=== PATIENT | male | born 1955 | race Caucasian/White ===

== ENCOUNTER → 2021-01-25 | Outpatient (CLI) | payer MEDICARE, BC ==
[~2021-01-25] MED LIST: ASPIRIN E.C. 8181 MG PO; CRESTOR40 MG PO; DUO-KAPS1 CAP PO; ELIQUIS 5MG PO; IMDUR 60MG60 MG/TAB PO; MULTIPLE VITAMI1 CAP PO; PLAVIX 75MG TAB75 MG PO; PRAVACHOL 40MG40 MG PO; PREVACID 30MG30 M1 PO; PRILOSEC 20MG20 MG PO; RANEXA 500MG T500 MG PO; THE MEDICINE S200 M2 PO; TOPROL XL 25MG25 MG PO; TRENTAL 400MG400 MG PO; TRICOR 48MG48 MG PO; VITAMIN E 400 U4001 PO; ZESTRIL2.5 MG PO; ZETIA 10MG TAB10 MG PO
== END ==
LOC: COL.RAD
DX: R63.4 Abnormal weight loss (principal)
CPT/HCPCS: Q9967

== ENCOUNTER 2021-10-04 14:14 | Day surgery (SDC) | payer MEDICARE, BC ==
[~2021-10-04] VITALS: Ht 180.3 cm; Wt 100.2 kg
[2021-10-04] VITALS (7 sets, daily range): BP systolic 91–132; BP diastolic 59–84; PULSE 52–80; TEMP 98.3
[~2021-10-04 14:14] MED LIST changes: -ELIQUIS 5MG PO; -PRAVACHOL 40MG40 MG PO; -PREVACID 30MG30 M1 PO; -THE MEDICINE S200 M2 PO; -TRENTAL 400MG400 MG PO; -VITAMIN E 400 U4001 PO
[2021-10-04] MEDS ORDERED: PREVACID 30MG30 M1 PO (15:25)
[2021-10-04] MEDS ORDERED: PRAVACHOL 40MG40 MG PO (15:25)
[2021-10-04] MEDS ORDERED: RANEXA 500MG T500 MG PO (15:26)
[2021-10-04] MEDS ORDERED: DUO-KAPS1 CAP PO (15:27)
[2021-10-04] MEDS ORDERED: ASPIRIN E.C. 8181 MG PO (15:27)
[2021-10-04] MEDS ORDERED: VITAMIN E 400 U4001 PO (15:28)
[2021-10-04] MEDS ORDERED: TRENTAL 400MG400 MG PO (15:29)
[2021-10-04] MEDS ORDERED: THE MEDICINE S200 M2 PO (15:31)
[2021-10-04] MEDS ORDERED: ELIQUIS 5MG PO (15:31)
[2021-10-04 16:00] LABS: BASO % 0.4 % (0.0-2.0); EOS # 0.2 K/mm3 (0.0-0.7); EOS % 2.7 % (0-4.0); GRAN % 53.7 % (42.2-75.2); HEMOGLOBIN 14.6 g/dl (13.5-18.0); LYMPH # 2.2 K/mm3 (1.2-3.4); MEAN CELL VOLUME 94 fl (80.0-100.0); MEAN CORPUSCULAR HEMOGLOBIN 32 pg (27.0-31.0); MEAN CORPUSCULAR HGB CONC 34 g/dl (33.0-37.0); MEAN PLATELET VOLUME 10.4 fl (7.4-10.4); MONO # 1.1 K/mm3 (0.1-0.6); MONO % 14.1 % (1.7-9.3); PLATELET COUNT 220 K/mm3 (130-400); RED BLOOD COUNT 4.57 M/mm3 (4.20-5.60); REDCELL DISTRIBUTION WIDTH-CV 12.6 % (11.5-14.5)
[2021-10-04 16:08] LABS: INR 1.3 (0.8-3.0); PROTHROMBIN TIME 14.8 SECONDS (9.7-12.8)
[2021-10-04 16:10] LABS: CALCIUM 9.2 mg/dL (8.4-10.2); CREATININE, serum 0.93 mg/dL (0.72-1.25); POTASSIUM 3.8 mmol/L (3.5-4.5)
--- NOTE | 2021-10-04 18:50 | NUR ---
Pt is getting dressed at this time. Pt did well during his recovery. Telemetry was employed for duration of his recovery. No problems with amiodarone drip. Pt remained in NSR throughout. Pt has now been up and amb to bathroom with steady gait. IV is dc'd with cath intact. I have reviewed dc/fu and rx instructions with pt and , no questions at this time. pt to exit via wheelchair.
== END 2021-10-04 19:27 | disposition home or self-care (01) ==
LOC: COL.CAR 14:14
PROVIDERS: Nurse Practitioner
DX: I48.0 Paroxysmal atrial fibrillation (principal); I10 Essential (primary) hypertension; I25.10 Atherosclerotic heart disease of native coronary artery without angina pectoris; R06.02 Shortness of breath; N48.6 Induration penis plastica; E78.5 Hyperlipidemia, unspecified; K21.9 Gastro-esophageal reflux disease without esophagitis; I27.20 Pulmonary hypertension, unspecified; Z79.899 Other long term (current) drug therapy; Z87.11 Personal history of peptic ulcer disease; Z79.82 Long term (current) use of aspirin; Z79.01 Long term (current) use of anticoagulants
CPT/HCPCS: J0282; J2704; J7060

== ENCOUNTER 2022-01-03 10:27 | Day surgery (SDC) | payer MEDICARE, BC ==
[2022-01-03] VITALS (11 sets, daily range): BP systolic 92–123; BP diastolic 53–76; PULSE 45–54; TEMP 97.6
[~2022-01-03] VITALS: Ht 180.3 cm; Wt 101.1 kg
[~2022-01-03 10:27] MED LIST changes: +ELIQUIS 5MG PO; +PRAVACHOL 40MG40 MG PO; +PREVACID 30MG30 M1 PO; +THE MEDICINE S200 M2 PO; +TRENTAL 400MG400 MG PO; +VITAMIN E 400 U4001 PO
[2022-01-03 11:39] LABS: HEMATOCRIT 43.8 % (42.0-52.0); HEMOGLOBIN 15.6 g/dl (13.5-18.0); MEAN CELL VOLUME 88 fl (80.0-100.0); MEAN CORPUSCULAR HEMOGLOBIN 32 pg (27-31); MEAN CORPUSCULAR HGB CONC 36 g/dl (33.0-37.0); MEAN PLATELET VOLUME 10.5 fl (7.4-10.4); PLATELET COUNT 236 K/mm3 (130-400); RED BLOOD COUNT 4.96 M/mm3 (4.20-5.60); REDCELL DISTRIBUTION WIDTH-CV 11.9 % (11.5-14.5)
[2022-01-03 11:48] LABS: INR 1.2 (0.8-3.0); PROTHROMBIN TIME 13.8 SECONDS (9.7-12.8)
[2022-01-03 11:53] LABS: CALCIUM 8.9 mg/dL (8.4-10.2); CREATININE, serum 1.27 mg/dL (0.72-1.25); POTASSIUM 4.3 mmol/L (3.5-4.5)
[2022-01-03] MEDS ORDERED: MULTAQ400 MG PO (12:19)
--- NOTE | 2022-01-03 13:28 | NUR ---
SEE MERGE FOR ALL MEDICATION ADMINISTRATION TIMES/DOSAGES AND INTRA/POST PROCEDURE SEDATION ASSESSMENTS.
--- NOTE | 2022-01-03 17:23 | NUR ---
Discharge instructions given to pt.Pt verbalizes understanding.INT removed,catheter tip intact.
--- NOTE | 2022-01-03 17:44 | NUR ---
Pt escorted out by this nurse.
== END 2022-01-03 17:49 ==
LOC: COL.CAR 10:27
PROVIDERS: Internal Medicine Interventional Cardiology
DX: I48.0 Paroxysmal atrial fibrillation (principal); I25.10 Atherosclerotic heart disease of native coronary artery without angina pectoris; E78.5 Hyperlipidemia, unspecified; R07.9 Chest pain, unspecified; R94.31 Abnormal electrocardiogram [ECG] [EKG]; R94.39 Abnormal result of other cardiovascular function study; F17.290 Nicotine dependence, other tobacco product, uncomplicated; Z20.822 Contact with and (suspected) exposure to COVID-19; Z79.899 Other long term (current) drug therapy; Z79.82 Long term (current) use of aspirin; Z79.01 Long term (current) use of anticoagulants; Z85.828 Personal history of other malignant neoplasm of skin; Z83.3 Family history of diabetes mellitus
CPT/HCPCS: J1644; J2250; J3010; Q9967